=== PATIENT | male | born 1945 | race Caucasian/White ===

== ENCOUNTER 2016-10-28 18:41 | Inpatient (IN) | payer MEDICAID ==
[~2016-10-28] VITALS: Ht 157.5 cm; Wt 65.0 kg
[2016-10-28] MEDS ORDERED: morphine 4 MG/ML VIAL IV STA (18:55)
[2016-10-28] MEDS ORDERED: SOD CHLORIDE 0.9% 1,000 ML IV STA (18:55)
[2016-10-28] MEDS ORDERED: ONDANSETRON 4 MG INJ IV STA (18:55)
[2016-10-28] MEDS ORDERED: MECLIZINE 12.5 MG TAB PO ONE (19:00)
[2016-10-28 19:10] LABS: BASOPHILS % 0.1 % (0.0-2.0); CONDITION 1; EOSINOPHILS % 0.6 % (0.0-7.0); HEMATOCRIT 40.6 % (42.0-52.0); LYMPHOCYTES # 1.1 10^3/ul (0.8-2.9); LYMPHOCYTES % 22.3 % (15.0-51.0); MEAN CORPUSCULAR HGB CONC 34.6 g/dl (32.0-37.0); MEAN CORPUSCULAR VOLUME 89.7 fl (82.0-101.0); MEAN PLATELET VOLUME 8.1 fl (7.4-10.4); MONOCYTE # 0.4 10^3/ul (0.3-0.9); MONOCYTES % 8.5 % (0.0-11.0); NEUTROPHIL # 3.5 10^3/ul (1.6-7.5); NEUTROPHILS % 68.5 % (39.0-77.0); PLATELET COUNT 122 10^3/UL (140-440); RED BLOOD COUNT 4.53 10^6/ul (4.70-6.10); RED CELL DISTRIBUTION WIDTH 13.4 % (11.5-14.5); UNCORRECTED WBC 5.1 10^3/ul (4.8-10.8); WHITE BLOOD COUNT 5.1 10^3/ul (4.8-10.8)
[2016-10-28 19:26] LABS: ADD UMIC NO; URINE BILIRUBIN (Dip) NEGATIVE (NEGATIVE); URINE BLOOD (Dip) NEGATIVE (NEGATIVE); URINE COLOR LT. YELLOW (YELLOW); URINE GLUCOSE (Dip) NEGATIVE (NEGATIVE); URINE KETONES (Dip) TRACE (NEGATIVE); URINE LEUKOCYTE ESTERASE (Dip) NEGATIVE (NEGATIVE); URINE NITRITE (Dip) NEGATIVE (NEGATIVE); URINE TOTAL PROTEIN (Dip) NEGATIVE (NEGATIVE); URINE UROBILINOGEN (Dip) 0.2 E.U./dL (0.1-1.0)
[2016-10-28 19:35] LABS: TROPONIN-I < 0.012 ng/ml (0.00-0.12)
[2016-10-28 20:09] LABS: INR 1.07; PROTIME 13.9 Sec (12.2-14.2); PT RATIO 1.1
[2016-10-28 20:10] LABS: PARTIAL THROMBOPLASTIN TIME 25.3 Sec (25.0-35.0)
[2016-10-28 20:21] LABS: CHLORIDE 99 mmol/L (97-110); POTASSIUM 3.7 mmol/L (3.5-5.1); SODIUM 137 mmol/L (135-144)
[2016-10-28 20:24] LABS: CREATININE 1.04 mg/dl (0.61-1.24)
[2016-10-28 20:25] LABS: ANION GAP 17 (8-16); BLOOD UREA NITROGEN 21 mg/dl (7-20); CALCIUM 8.7 mg/dl (8.4-10.2); CARBON DIOXIDE 25 mmol/L (21-31); GLUCOSE 110 mg/dl (70-220)
[2016-10-28] MEDS ORDERED: LOSA25TA5 PO (20:30)
[2016-10-28] MEDS ORDERED: RANI150T5 PO (20:30)
[2016-10-28] MEDS ORDERED: AMLO2.5T78 PO (20:30)
[2016-10-28] MEDS ORDERED: TERA5CAP3 PO (20:30)
--- NOTE | 2016-10-28 20:46 | RADRPT ---
PROCEDURE: CT Head without. CLINICAL INDICATION: Possible stroke. TECHNIQUE: The study was performed utilizing a multi-slice, multidetector CT scanner. Direct spira l 1 mm axial sections were obtained through the head without the use of intravenous contrast materia l. Coronal and sagittal reformations were obtained. The images were reviewed on a PACS workstation. RADIATION DOSE: CTDIvol: 44.1 mGyDLP: 720.2 mGy-cm COMPARISON: No prior studies are available for comparison. FINDINGS: There is no intracranial hemorrhage, extra-axial fluid collection, mass lesion, midline shift or hyd rocephalus. There is mild prominence of the cerebral sulci, lateral and third ventricles. There is a subtle area of hypodensity involving the left sub insular white matter, which is asymmetric. The re is a baseline of mild periventricular and subcortical white matter lesions. The doherty-white matte r differentiation is preserved. The basal cisterns are patent. The midline structures are intact. The orbits, calvarium and extracranial soft tissues are normal in appearance. The visualized parana chayo sinuses, mastoid air cells and middle ear cavities are normally aerated. IMPRESSION: 1. No acute intracranial abnormality. No intracranial hemorrhage, extra-axial fluid collection, ma ss lesion or hydrocephalous. 2. Mild periventricular and subcortical white matter lesions, with subtle area of asymmetric hypode nsity involving the left sub insular white matter. This may be related to asymmetric white matter c hanges, however underlying infarct is not excluded. 3. Mild peripheral and central cerebral volume loss. The above findings were discussed with Patient's physician Caleb Stallings by telephone on 10/28/2016 8 :45:36 PM. RPTAT: HGAS .Jr Neely MD, MD Date Time Electronically viewed and signed by .Jr Neely MD, on 10/28/2016 20:46 .S/
[2016-10-28] MEDS ORDERED: AMLO5TAB4 PO (20:53)
[2016-10-28] MEDS ORDERED: ASPIRIN 325 MG TAB PO ONE (21:00)
--- NOTE | 2016-10-28 21:17 | ERA ---
ER Documentation Chief Complaint Date/Time DATE: 10/28/16 TIME: 21:14 Chief Complaint bibr co dizziness since earlier today perrla normal neuro co vertigo HPI Patient is a 70-year-old male with hypertension who presents with dizziness and headache. He was brought in by ambulance. He had a fall today. He passed out per the family does not remember what happened. This happened about 1 hour ago. He has had no treatment as of yet. He has had no fevers. He does not know the name of his primary doctor. Upon review of old medical records this is the patient's first visit to the emergency department. ROS All systems reviewed and are negative except as per history of present illness. Medications Home Meds Reported Medications Amlodipine Besylate* (Norvasc*) 5 Mg Tablet, 5 MG PO DAILY, TAB 10/28/16 Terazosin Hcl* (Terazosin Hcl*) 5 Mg Capsule, 5 MG PO HS, CAP 10/28/16 Ranitidine Hcl* (Ranitidine Hcl*) 150 Mg Tablet, 150 MG PO Q12, #60 TAB 10/28/16 Losartan Potassium* (Losartan Potassium*) 25 Mg Tablet, 25 MG PO BID, TAB 10/28/16 Discontinued Reported Medications Amlodipine Besylate* (Amlodipine Besylate*) 2.5 Mg Tablet, 5 MG PO DAILY, #30 TAB 10/28/16 Allergies Allergies: Coded Allergies: No Known Allergy (Unverified , 10/28/16) PMhx/Soc Medical and Surgical Hx: pt denies Surgical Hx History of Surgery: No Anesthesia Reaction: No Hx Neurological Disorder: No Hx Respiratory Disorders: No Hx Cardiac Disorders: Yes (HTN) Hx Psychiatric Problems: No Hx Miscellaneous Medical Probl: No Hx Alcohol Use: No Hx Substance Use: No Hx Tobacco Use: No Smoking Status: Former smoker FmHx Family History: No diabetes Physical Exam Vitals Vital Signs Date Time Temp Pulse Resp B/P Pulse Ox O2 Delivery O2 Flow Rate FiO2 10/28/16 19:30 81 22 135/68 97 Room Air 10/28/16 19:02 98.5 89 18 121/64 98 Physical Exam Const: No acute distress Head: Atraumatic Eyes: Normal Conjunctiva ENT: Normal External Ears, Nose and Mouth. Neck: Full range of motion..~ No meningismus. Resp: Clear to auscultation bilaterally Cardio: Regular rate and rhythm, no murmurs Abd: Soft, non tender, non distended. Normal bowel sounds Skin: No petechiae or rashes Back: No midline or flank tenderness Ext: No cyanosis, or edema Neur: Awake and alert, cranial nerves II through XII are intact, no pronator drift, no slurred speech Psych: Normal Mood and Affect Result Diagram: 10/28/16189910/28/161899 Results 24 hrs Laboratory Tests Test 10/28/16 19:00 10/28/16 19:09 10/28/16 20:03 Activated Partial Thromboplast Time 25.3Sec Anion Gap 17 Basophils # 0.010^3/ul Basophils % 0.1% Blood Urea Nitrogen 21mg/dl Calcium Level 8.7mg/dl Carbon Dioxide Level 25mmol/L Chloride Level 99mmol/L Creatinine 1.04mg/dl Eosinophils # 0.010^3/ul Eosinophils % 0.6% Glucose Level 110mg/dl Hematocrit 40.6% Hemoglobin 14.0g/dl INR International Normalized Ratio 1.07 Lymphocytes # 1.110^3/ul Lymphocytes % 22.3% Mean Corpuscular Hemoglobin 31.0pg Mean Corpuscular Hemoglobin Concent 34.6g/dl Mean Corpuscular Volume 89.7fl Mean Platelet Volume 8.1fl Monocytes # 0.410^3/ul Monocytes % 8.5% Neutrophils # 3.510^3/ul Neutrophils % 68.5% Nucleated Red Blood Cells # 0.010^3/ul Nucleated Red Blood Cells % 0.0/100WBC Platelet Count 73529^3/UL Potassium Level 3.7mmol/L Prothrombin Time 13.9Sec Prothrombin Time Ratio 1.1 Red Blood Count 4.5310^6/ul Red Cell Distribution Width 13.4% Sodium Level 137mmol/L Troponin I < 0.012ng/ml White Blood Count 5.110^3/ul Urine Bilirubin NEGATIVE Urine Clarity CLEAR Urine Color LT. YELLOW Urine Glucose NEGATIVE% Urine Hemoglobin NEGATIVE Urine Ketones TRACE Urine Leukocyte Esterase NEGATIVE Urine Nitrite NEGATIVE Urine Specific [place] 1.020 Urine Total Protein NEGATIVE Urine Urobilinogen 0.2 E.U./dL Urine pH 6.0 Bedside Glucose 104mg/dL Current Medications Medications (Trade) Dose Ordered Sig/Tina Route PRN Reason Start Time Stop Time Status Last Admin Dose Admin Sodium Chloride (NS) 1,000 ml @ 1,000 mls/hr Q1H STAT IV 10/28/16 18:55 10/28/16 19:54 10/28/16 19:12 Morphine Sulfate (morphine) 4 mg ONCE STAT IV 10/28/16 18:55 10/28/16 18:56 10/28/16 19:11 Ondansetron HCl (Zofran Inj) 4 mg ONCE STAT IV 10/28/16 18:55 10/28/16 18:56 10/28/16 19:11 Meclizine HCl (Antivert) 25 mg ONCE ONCE PO 10/28/16 19:00 10/28/16 19:01 10/28/16 19:13 Aspirin (Aspirin) 325 mg ONCE ONCE PO 10/28/16 21:00 10/28/16 21:01 10/28/16 20:49 Ondansetron HCl (Zofran Inj) 4 mg ER BRIDGE PRN IV NAUSEA AND/OR VOMITING 10/28/16 21:30 10/29/16 21:29 Acetaminophen (Tylenol Tab) 650 mg ER BRIDGE PRN PO MILD PAIN/FEVER 10/28/16 21:30 10/29/16 21:29 Procedures/MDM EKG read by me: Rate/Rhythm: Regular rate and rhythm at a rate of 75 Intervals: Normal Impression: No evidence of ischemia or arrhythmia CT brain shows possible stroke per radiology, MRI recommended. Patient is a 70-year-old male who presents with a possible stroke. He has no focal neurologic deficits at this time and I do not believe that he is a TPA candidate. The patient had a bedside swallow and NIH performed and he will be given aspirin. I spoke with Dr. Mathis from the panel team as the patient is self-pay and does not know the name of his primary doctor. The patient will be admitted to a telemetry bed. I doubt intracranial bleed or mass. He also had a syncopal event and therefore will need telemetry monitoring as well. Departure Diagnosis: Primary Impression: Stroke Qualified Code: I63.9 - Cerebrovascular accident (CVA), unspecified mechanism Additional Impressions: Dizziness Headache Qualified Code: R51 - Acute nonintractable headache, unspecified headache type Condition: KEYLA Orellana MD Oct 28, 2016 21:17
[2016-10-28 21:29] LABS: BARBITURATES Negative (NEGATIVE); BENZODIAZEPINES Negative (NEGATIVE); CANNABINOIDS Negative (NEGATIVE); COCAINE Negative (NEGATIVE); OPIATES Negative (NEGATIVE)
[2016-10-28] MEDS ORDERED: ONDANSETRON 4 MG INJ IV PRN (21:30)
[2016-10-28] MEDS ORDERED: ACETAMINOPHEN 325 MG TAB PO PRN (21:30)
[2016-10-28 22:15] VITALS: PULSE 80
[2016-10-28 22:26] VITALS: BP 129/60; RESP 20
[2016-10-28 22:31] VITALS: Ht 157.5 cm; Wt 65.0 kg
--- NOTE | 2016-10-28 22:53 | RADRPT ---
PROCEDURE: XR Chest. CLINICAL INDICATION: Shortness of breath TECHNIQUE: A single portable view of the chest was obtained. COMPARISON: None FINDINGS: The cardiomediastinal silhouette is within normal limits. The right hemidiaphragm is elevated right lower lobe atelectasis. Remaining lungs and pleural spaces are clear. The soft tissues and osseous structures are unremarkable. IMPRESSION: No acute cardiopulmonary disease. Elevated right hemidiaphragm with right lower lobe atelectasis. RPTAT: HPNM Physician Amandeep Date Time Electronically viewed and signed by Jorge Alberto Priest Physician on 10/28/2016 22:53 /
[2016-10-28 23:42] VITALS: BP 103/53; RESP 20
[2016-10-29] VITALS (12 sets, daily range): BP systolic 105–148; BP diastolic 52–70; PULSE 56–69; RESP 16–20
[2016-10-29] MEDS ORDERED: NACL 0.9% 3 ML SYG IV SCH
[2016-10-29] MEDS ORDERED: DOCUSATE SODIUM 100 MG CAP PO PRN
[2016-10-29] MEDS ORDERED: HYDROCODONE/APAP (5/325) TAB PO PRN
[2016-10-29] MEDS ORDERED: morphine 2 MG INJ IV PRN
[2016-10-29] MEDS ORDERED: ZOLPIDEM 5 MG TAB PO PRN
[2016-10-29] MEDS ORDERED: ACETAMINOPHEN 325 MG TAB PO PRN
[2016-10-29] MEDS ORDERED: ONDANSETRON 4 MG INJ IV PRN
[2016-10-29] MEDS: SOD CHLORIDE 0.45% 1,000 ML IV SCH ×2 (00:35→06:51)
[2016-10-29 07:28] LABS: BASOPHILS % 0.4 % (0.0-2.0); EOSINOPHILS # 0.2 10^3/ul (0.0-0.5); EOSINOPHILS % 3.6 % (0.0-7.0); HEMATOCRIT 34.5 % (42.0-52.0); HEMOGLOBIN 12.1 g/dl (14.0-18.0); LYMPHOCYTES # 1.7 10^3/ul (0.8-2.9); LYMPHOCYTES % 39.7 % (15.0-51.0); MEAN CORPUSCULAR HEMOGLOBIN 31.4 pg (29.0-33.0); MEAN CORPUSCULAR VOLUME 89.7 fl (82.0-101.0); MEAN PLATELET VOLUME 8.8 fl (7.4-10.4); MONOCYTE # 0.4 10^3/ul (0.3-0.9); MONOCYTES % 9.7 % (0.0-11.0); NEUTROPHILS % 46.6 % (39.0-77.0); PLATELET COUNT 112 10^3/UL (140-440); RED BLOOD COUNT 3.85 10^6/ul (4.70-6.10); RED CELL DISTRIBUTION WIDTH 13.1 % (11.5-14.5); UNCORRECTED WBC 4.3 10^3/ul (4.8-10.8); WHITE BLOOD COUNT 4.3 10^3/ul (4.8-10.8)
--- NOTE | 2016-10-29 07:33 | HP ---
DATE OF ADMISSION: 10/28/2016 CHIEF COMPLAINT: Syncope. HISTORY OF PRESENT ILLNESS: The patient is a 70-year-old male with a history of hypertension; other mahmood, no medical history. The patient denies any cardiac history. The patient presents with a sync opal episode. The patient lost consciousness after the episode. The patient had an episode of pres yncope approximately 1 week ago. The patient has been under a lot of stress, secondary to issues wi th his son in [place]. The patient denies any chest pain and denies any shortness of breath. In the ED, the patient had a brain CT that showed mild subcortical white matter lesions; infarct could not be excluded. The patient has no residual neurological issues at this time. He has no complaints a t this time. PAST MEDICAL HISTORY: Hypertension and BPH. PAST SURGICAL HISTORY: Appendectomy. HOME MEDICATIONS 1. Norvasc. 2. Terazosin. 3. . 4. Losartan. ALLERGIES: NO KNOWN DRUG ALLERGIES. FAMILY HISTORY: Denies. SOCIAL HISTORY: Denies alcohol, tobacco, or drug abuse. REVIEW OF SYSTEMS: A 12-point review of systems is negative, except for that discussed in the HPI. PHYSICAL EXAMINATION VITAL SIGNS: Temperature is 97.1, pulse 74, respiratory rate is 20, BP is 129/60, saturation 95% on room air. GENERAL: No acute distress. Alert and oriented. HEAD, EARS, EYES, NOSE, AND THROAT: Normocephalic, atraumatic. CHEST: Clear to auscultation. CARDIOVASCULAR: Regular rate and rhythm. ABDOMEN: Nondistended, nontender, and soft. EXTREMITIES: No clubbing, cyanosis, or edema. NEUROLOGICAL: No focal deficits noted. Strength is intact in all extremities. LABORATORY DATA: White count 7.1, hemoglobin is 14.0, platelets are 122. Chemistry is within raza l limits, except for BUN was slightly elevated at 21. The anion gap was 17. Troponin is 0.012. IN R is 1.07. UA is within normal limits. Urine toxicology is negative. DIAGNOSTIC DATA: Chest x-ray shows no acute cardiopulmonary disease, elevated right hemidiaphragm, with right lower lobe atelectasis. Brain CT shows no acute abnormality and no intracranial hemorrha ge, some mild periventricular and subcortical white matter lesions with subtle area of asymmetric hy podensity involving the left subinsular white matter, and this may be related to asymmetric white ma tter changes; however, underlying infarct is not excluded; small peripheral loss. ASSESSMENT AND PLAN 1. Syncope is likely vasovagal from underlying anxiety. The patient has not slept well and has bee n anxious secondary to issues with the son. The patient has no cardiac history, but we will rule ou t any vascular and cardiac etiologies with a carotid ultrasound and an echocardiogram. We will also obtain MRI to evaluate for the findings mentioned on the brain CT. 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 2. Hypertension. Resume home medications if blood pressure (BP) tolerates. 3. Benign prostatic hypertrophy (BPH). Continue home medications. 4. Prophylaxis: Sequential compression devices (SCDs). Dictated By: TARUN DEXTER/ZORAN Conf#: [id number] DID#: [id number]
[2016-10-29 07:34] LABS: POTASSIUM 4.1 mmol/L (3.5-5.1)
[2016-10-29 07:37] LABS: CREATININE 0.82 mg/dl (0.61-1.24); PHOSPHORUS 3.7 mg/dl (2.5-4.9)
[2016-10-29 07:38] LABS: CALCIUM 8.5 mg/dl (8.4-10.2); CHOL/HDL RATIO 2.9 RATIO; MAGNESIUM 2.1 mg/dl (1.7-2.5)
[2016-10-29 07:39] LABS: CONDITION 1
[2016-10-29 08:20] LABS: T3 UPTAKE 38.4 % (23.5-40.5)
[2016-10-29] MEDS: RANITIDINE 150 MG TAB PO SCH ×2 (09:10→20:37)
[2016-10-29] MEDS: LOSARTAN 25 MG TAB PO SCH ×2 (09:10→20:38)
[2016-10-29] MEDS: AMLODIPINE 5 MG TAB PO SCH (09:10)
--- NOTE | 2016-10-29 10:09 | RADRPT ---
Echocardiogram Report Patient Name: DAVIN MCGREGOR Gender: Male Date: 1945 Study Date: 29-Oct-2016 [employer] Operator: [facility] Location: 514 Ref. Physician: TARUN GANDHI Quality: Adequate Procedures: Transthoracic echocardiogram with complete 2D, M-Mode, and doppler examination. Indications: Syncope. 2D/M Mode Doppler Measurement Value Normal Ranges Measurement Value Normal Ranges LVIDd 2D 4.3 3.5 - 5.6 cm AV Peak Shaggy 1.7 m/sec LVIDs 2D 2.9 2.1 - 4.1 cm AV Peak PG 11.0 mmHg FS 2D 32.9 % LVOT Peak Shaggy 1.1 m/sec LVPWd 2D 1.1 0.6 - 1.1 cm LVOT Peak PG 4.0 mmHg IVSd 2D 1.2 0.6 - 1.1 cm MV E Peak Shaggy 0.9 m/sec IVS/LVPW 2D 1.1 MV A Peak Shaggy 0.7 m/sec AoR Diam 2D 2.8 2.0 - 3.7 cm MV E/A 1.2 LA/Ao 2D 1 0 - 1 MV Decel Time 236 msec EDV 2D 80.1 cm3 MV E/A 1.2 ESV 2D 24.1 cm3 LA Dimen 2D 3.4 2.3 - 4.0 cm Findings Left Ventricle: Normal left ventricular systolic function. Normal left ventricular cavity size. Left ventricular wall thickness upper limits of normal. Ejection fraction is visually estimated at 65 %. Abnormal Diastolic Function. Right Ventricle: Normal right ventricular size. Normal right ventricular systolic function. Prominent moderator band - normal variant. Left Atrium: The left atrium is normal in size. Right Atrium: The right atrium is normal in size. Mitral Valve: Normal appearance of the mitral valve. Trace mitral regurgitation. Aortic Valve: Trileaflet aortic valve. Tricuspid Valve: Normal appearance of the tricuspid valve. There is trace tricuspid regurgitation. Pulmonic Valve: There is trace pulmonic regurgitation. Pericardium: Normal pericardium with no significant pericardial effusion. Aorta: Normal aortic root. IVC: Dilated inferior vena cava with poor inspiratory collapse consistent with elevated right atrial pressures. Conclusions 1.Normal left ventricular systolic function. Normal left ventricular cavity size. Left ventricular wall thickness upper limits of normal. Ejection fraction is visually estimated at 65 %. Abnormal Diastolic Function. 2.Trileaflet aortic valve. Electronically Signed By: Ethan Nicolas 29-Oct-2016 10:08:42 -0800 Patient Name: DAVIN MCGREGOR Study Date: 29-Oct-[id number]
--- NOTE | 2016-10-29 10:37 | RADRPT ---
PROCEDURE: US carotid arteries. CLINICAL INDICATION: Dizziness. Syncope. TECHNIQUE: Multiple sonographic images of the carotid arteries and vertebral arteries were obtaine d utilizing doherty scale, duplex, and color-flow imaging. The images were reviewed on a PACS workstati on. COMPARISON: No prior studies are available for comparison. FINDINGS: Evaluation of the right carotid bifurcation region reveals mild atherosclerotic disease. Evaluation of the left carotid bifurcation region reveals mild atherosclerotic disease. There is antegrade flow within the vertebral arteries bilaterally. RIGHT CAROTID MEASUREMENTS: Common Carotid [id number] (cm/sec) Internal Carotid Artery 110 (cm/sec) External Carotid Artery 140 (cm/sec) Vertebral Artery 70 (cm/sec) Internal Carotid/Common Carotid1.0 LEFT CAROTID MEASUREMENTS: Common Carotid [id number] (cm/sec) Internal Carotid Artery 96 (cm/sec) External Carotid Artery 75 (cm/sec) Vertebral Artery 46 (cm/sec) Internal Carotid/Common Carotid1.2 Validated velocity measurements with angiographic measurements. Velocity criteria are extrapolated f rom diameter data as defined by the Society of Radiologists in Ultrasound Consensus Conference. Radi ology 2003; 229;340-346. This study does indirectly reference the measurement of the distal ICA sky meter as the denominator for stenosis measurement. IMPRESSION: 1. Less than 50% stenosis bilaterally in the internal carotid arteries. 2. Normal antegrade flow in the vertebral arteries bilaterally. RPTAT: QQ SRU Consensus Conference Criteria for the Diagnosis of Carotid Artery Stenosis* Degree of Stenosis, % ICA PSV, cm/sec Plaque Estimate, % ICA/CCA PSV Ratio Normal <125 None <2.0 <50 <125 <50 <2.0 50 69 125-230 >50 2.0-4.0 >70 but less than near occlusion >230 >50 <4.0 Near occlusion High, low, or undetectable Visible Variable Total occlusion Undetectable Visible, no detectable lumen Not applicable *Cartoid artery stenosis: doherty-scale and Doppler US diagnosis. Society of Radiologists in Ultrasound Consensus Conference. Radiology 2003; 229: 340-346 .Damián Collins MD, Date Time Electronically viewed and signed by .Damián Collins MD, on 10/29/2016 10:36 .R/
--- NOTE | 2016-10-29 14:23 | PN ---
DATE: 10/29/2016 TIME OF EVALUATION: 11:30 a.m. SUBJECTIVE DATA: Denies any headache. Denies any dizziness. OBJECTIVE DATA: VITAL SIGNS: Temperature 98.1, pulse rate 65, respiratory rate 18, blood pressure 125/57, oxygen saturation 95% on room air. GENERAL: This is a well-built, well-nourished male lying in bed in no apparent distress. HEENT: Head normocephalic and atraumatic. Eyes: Anicteric sclerae. Conjunctivae clear. ENT: Nasal septum is midline. Oral mucosa is moist. NECK: Supple. No JVD noticed. RESPIRATORY: Bilaterally clear to auscultation. No adventitious breath sounds. No use of accessory muscles of respiration. CARDIAC: Regular rate and rhythm. No murmurs heard. ABDOMEN: Soft, nontender and nondistended. Bowel sounds positive in all 4 quadrants. GENITOURINARY: Deferred. EXTREMITIES: No cyanosis, no clubbing, no edema. Peripheral pulses are palpable. NEUROLOGIC: The patient is awake, alert and oriented. Cranial nerves II through XII are grossly intact. Equal strength in all 4 extremities. LABORATORY AND DIAGNOSTIC DATA: WBC 4.3, hemoglobin 12.1, hematocrit 34.5, platelet count 112. Sodium 142, potassium 4.1, chloride 108, carbon dioxide 20 , anion gap 13, BUN 13, creatinine 0.82, glucose 89, calcium 8.5, phosphorus 3.7 , magnesium 2.1. Triglycerides 62, total cholesterol 104, LDL 57, HDL 35. Carotid Doppler study. Less than 50% stenosis bilaterally in the internal carotid arteries. Normal antegrade flow in the vertebral arteries bilaterally. 2D echocardiogram. Normal left ventricular systolic function. Ejection fraction of 65%. Abdominal diastolic dysfunction. Trileaflet aortic valve. ASSESSMENT AND PLAN: 1. Syncope. Etiology unclear. The patient's CT scan of the brain was showing mild periventricular and subcortical white matter lesions, a subtle area of asymmetric hypodensity involving the left subinsular white matter, which may be related to asymmetric white matter changes. Pending brain MRI. Carotid Doppler study showing less than 50% stenosis of carotid arteries bilaterally. The patient will be started on statins. 2. Carotid artery disease. The patient will be started on a statin. Will reinforce a low cholesterol diet. 3. Essential hypertension. The patient will be continued on antihypertensives. 4. Normocytic, normochromic anemia. We will monitor the H and H closely. 5. Fluid, electrolytes and nutrition. Continue low cholesterol diet. 6. Deep venous thrombosis prophylaxis with bilateral sequential compression devices. 7. Gastrointestinal prophylaxis with H2 receptor blockers. 8. PLAN: Continue telemetry monitoring. Await brain MRI. Start the patient on statins. The plan of care was explained to the patient. Family was at the bedside. Case discussed with Dr. Dorantes. TRISTIN DORANTES MD, AM/ZORAN Conf#: [id number] DID#: [id number] MTDD
--- NOTE | 2016-10-29 18:25 | RADRPT ---
PROCEDURE: MRI Brain without and with contrast. CLINICAL INDICATION: CVA. TECHNIQUE: An MRI of the brain was performed utilizing the following sequences: Sagittal T1-weigh suzi, axial T2-weighted, axial FLAIR, axial T1, coronal GRE axial diffusion-weighted with ADC mapping . Following the uneventful administration of 10 cc Magnevist, postcontrast axial and coronal T1-weig hted images were obtained. Images were viewed on a PACS workstation. COMPARISON: Brain CT 10/28/2016 FINDINGS: Multiple images are degraded by motion. No diffusion weighted abnormalities are seen to suggest the presence of acute ischemia or recent inf arct. There is no intracranial hemorrhage, mass effect, or midline shift. No extra-axial fluid col lection is seen. The ventricles and sulci are mildly enlarged indicative of volume loss. There are mild scattered foci of T2 and FLAIR hyperintensity in the white matter, which are nonspeci fic in etiology but likely reflect chronic small vessel ischemic changes. The gradient echo images reveal no areas of susceptibility artifact to suggest blood degradation products or abnormal calcifi cation. No abnormal intraparenchymal, meningeal or ependymal enhancement is seen. No abnormal intracranial vascular flow voids are noted. The pituitary and sella reveal no abnormali ty. The suprasellar cistern is clear. The visualized paranasal sinuses demonstrate mild scattered m ucosal thickening mainly in ethmoid air cells and maxillary sinuses. The mastoid air cells are pat r. IMPRESSION: 1. No acute intracranial hemorrhage, infarction or mass. No intracranial enhancing abnormality. 2. Mild chronic small vessel ischemic changes. 3. Mild generalized cerebral volume loss. 4. Mild scattered paranasal sinus disease. RPTAT: AA .Leatha Saldana MD, MD Date Time Electronically viewed and signed by .Leatha Saldana MD, MD on 10/29/2016 18:24 .N/
[2016-10-29] MEDS ORDERED: TERAZOSIN 5 MG CAP PO SCH (21:00)
[2016-10-29] MEDS ORDERED: ATORVASTATIN 20 MG TAB PO SCH (21:00)
[2016-10-30 00:05] VITALS: PULSE 63
[2016-10-30 03:42] VITALS: BP 126/65; RESP 16
[2016-10-30 04:06] VITALS: PULSE 50
[2016-10-30 06:20] LABS: BASOPHILS % 0.6 % (0.0-2.0); EOSINOPHILS # 0.2 10^3/ul (0.0-0.5); EOSINOPHILS % 4.5 % (0.0-7.0); HEMOGLOBIN 13.2 g/dl (14.0-18.0); LYMPHOCYTES # 1.7 10^3/ul (0.8-2.9); LYMPHOCYTES % 40.8 % (15.0-51.0); MEAN CORPUSCULAR HEMOGLOBIN 31.4 pg (29.0-33.0); MEAN CORPUSCULAR HGB CONC 34.7 g/dl (32.0-37.0); MEAN CORPUSCULAR VOLUME 90.6 fl (82.0-101.0); MEAN PLATELET VOLUME 8.6 fl (7.4-10.4); MONOCYTE # 0.4 10^3/ul (0.3-0.9); MONOCYTES % 9.2 % (0.0-11.0); NEUTROPHIL # 1.8 10^3/ul (1.6-7.5); NEUTROPHILS % 44.9 % (39.0-77.0); PLATELET COUNT 123 10^3/UL (140-440); RED BLOOD COUNT 4.19 10^6/ul (4.70-6.10); UNCORRECTED WBC 4.1 10^3/ul (4.8-10.8); WHITE BLOOD COUNT 4.1 10^3/ul (4.8-10.8)
[2016-10-30 06:28] LABS: CONDITION 1
[2016-10-30 06:36] LABS: POTASSIUM 4.1 mmol/L (3.5-5.1)
[2016-10-30 06:39] LABS: CREATININE 0.74 mg/dl (0.61-1.24)
[2016-10-30 06:40] LABS: CALCIUM 8.9 mg/dl (8.4-10.2)
[2016-10-30 06:46] LABS: MAGNESIUM 1.9 mg/dl (1.7-2.5); PHOSPHORUS 3.6 mg/dl (2.5-4.9)
[2016-10-30 08:42] VITALS: BP 128/71; RESP 18
[2016-10-30 09:36] VITALS: PULSE 65
[2016-10-30] MEDS ORDERED: ATOR20TA65 PO (09:36)
[2016-10-30] MEDS: RANITIDINE 150 MG TAB PO SCH (09:36)
[2016-10-30] MEDS: AMLODIPINE 5 MG TAB PO SCH (09:36)
[2016-10-30] MEDS: LOSARTAN 25 MG TAB PO SCH (09:36)
--- NOTE | 2016-10-30 10:03 | PDOCDIS ---
Discharge Instructions DIAGNOSIS Discharge Diagnosis: 1, reported syncopal episode 2. hypertension CONDITION Patient Condition: Stable HOME CARE INSTRUCTIONS: Diet Instructions: Low Fat /Cholesterol ACTIVITY: Activity Restrictions: Slowly Increase Activity Rest between Activity FOLLOW UP/APPOINTMENTS Appointments 1. Follow up with your primary care provider in one week JES ESCOBAR Oct 30, 2016 10:03
[2016-10-30 11:00] VITALS: BP 137/68; PULSE 74; RESP 16
--- NOTE | 2016-10-30 15:02 | DS ---
Date/Time of Note Date/Time of Note DATE: 10/30/16 TIME: 15:01 Discharge Summary Admission/Discharge Info Admit Date/Time Oct 28, 2016 at 21:06 Discharge Date/Time Oct 30, 2016 at 11:35 Final Diagnosis 1. Reported syncope 2. Essential hypertension Patient Condition: Stable Hospital Course This is a 70-year-old male with history of hypertension, who came to [facility] due to reports of syncopal episode. It was reported the patient lost consciousness. He also had similar episode of present be approximately 1 week prior to admission. He did go to [facility] and did have brain CT that showed multiple cortical white matter lesions for which infarct could not be excluded. We did do physical assessment for the patient and he presented with no focal deficit slurred speech or facial droop. Patient also did have further carotid upper done that showed less than 50 % stenosis bilaterally in the internal carotid arteries and normal antegrade flow in vertebral arteries bilaterally. Cholesterol panel was also noted to be within normal limits. Patient did have also did have brain MRI that showed no acute intracranial hemorrhage infarction or mass. Suspect patient's symptoms of syncope may have been from orthostatic hypotension. Patient was resumed on his antihypertensives and educated about spacing his antihypertensive medications upon use. During his course of stay did improve. He was instructed to follow-up with his primary care physician within a week. He was optimized medically with antihypertensives for his hypertension. The plan of care was discussed with the patient and patient did verbalize understanding. On the day of discharge patient was in stable condition Discussed plan of care with Dr. Prieto Home Meds Reported Medications Amlodipine Besylate* (Norvasc*) 5 Mg Tablet, 5 MG PO DAILY, TAB 10/28/16 Terazosin Hcl* (Terazosin Hcl*) 5 Mg Capsule, 5 MG PO HS, CAP 10/28/16 Ranitidine Hcl* (Ranitidine Hcl*) 150 Mg Tablet, 150 MG PO Q12, #60 TAB 10/28/16 Losartan Potassium* (Losartan Potassium*) 25 Mg Tablet, 25 MG PO BID, TAB 10/28/16 Discontinued Reported Medications Amlodipine Besylate* (Amlodipine Besylate*) 2.5 Mg Tablet, 5 MG PO DAILY, #30 TAB 10/28/16 Follow-up Plan CONDITION Patient Condition: Stable HOME CARE INSTRUCTIONS: Diet Instructions: Low Fat /Cholesterol ACTIVITY: Activity Restrictions: Slowly Increase Activity Rest between Activity FOLLOW UP/APPOINTMENTS Appointments 1. Follow up with your primary care provider in one week Pending Labs Laboratory Tests Test 10/30/16 05:41 Anion Gap 14 (8-16) Basophils # 0.010^3/ul (0.0-0.1) Basophils % 0.6% (0.0-2.0) Blood Urea Nitrogen 9mg/dl (7-20) Calcium Level 8.9mg/dl (8.4-10.2) Carbon Dioxide Level 25mmol/L (21-31) Chloride Level 107mmol/L (97-110) Creatinine 0.74mg/dl (0.61-1.24) Eosinophils # 0.210^3/ul (0.0-0.5) Eosinophils % 4.5% (0.0-7.0) Glucose Level 88mg/dl (70-220) Hematocrit 38.0% (42.0-52.0) Hemoglobin 13.2g/dl (14.0-18.0) Lymphocytes # 1.710^3/ul (0.8-2.9) Lymphocytes % 40.8% (15.0-51.0) Magnesium Level 1.9mg/dl (1.7-2.5) Mean Corpuscular Hemoglobin 31.4pg (29.0-33.0) Mean Corpuscular Hemoglobin Concent 34.7g/dl (32.0-37.0) Mean Corpuscular Volume 90.6fl (82.0-101.0) Mean Platelet Volume 8.6fl (7.4-10.4) Monocytes # 0.410^3/ul (0.3-0.9) Monocytes % 9.2% (0.0-11.0) Neutrophils # 1.810^3/ul (1.6-7.5) Neutrophils % 44.9% (39.0-77.0) Nucleated Red Blood Cells # 0.010^3/ul (0.0-0.0) Nucleated Red Blood Cells % 0.0/100WBC (0.0-0.0) Phosphorus Level 3.6mg/dl (2.5-4.9) Platelet Count 85126^3/UL (140-440) Potassium Level 4.1mmol/L (3.5-5.1) Red Blood Count 4.1910^6/ul (4.70-6.10) Red Cell Distribution Width 13.0% (11.5-14.5) Sodium Level 142mmol/L (135-144) White Blood Count 4.110^3/ul (4.8-10.8) JES ESCOBAR Oct 30, 2016 15:02
== END 2016-10-30 11:35 | disposition home or self-care (01) | DRG 312 ==
LOC: E/R 18:41 → TEL 21:06
PROVIDERS: ADMIT Internal Medicine; ATTEND Internal Medicine
DX: R55 Syncope and collapse (principal); D64.9 Anemia, unspecified; I10 Essential (primary) hypertension; N40.0 Benign prostatic hyperplasia without lower urinary tract symptoms; I25.10 Atherosclerotic heart disease of native coronary artery without angina pectoris
CPT/HCPCS: 36415; 70450; 70552; 71010; 80048; 80061; 80307; 81003; 82962; 83036; 83735; 84100; 84436; 84479; 84484; 85025; 85610; 85730; 93005; 93306; 93880; 96361; 96374; 96375; 97163; J2270; J2405; J7030